=== PATIENT | female | born 1975 | race Two or more races ===

== ENCOUNTER 2023-08-07 07:29 | Inpatient (IN) | payer OTHER ==
[~2023-08-07] VITALS: Ht 175.3 cm; Wt 75.3 kg
[~2023-08-07 07:29] MED LIST: CYTOMEL5 MCG PO; FOLIC ACID1 MG PO; IRON325 MG PO; MAGNESIUM250 MG PO; MELATONIN10 M2 PO; PROBIOTIC1 EACH PO; SYNTHROID125 MCG PO
[2023-08-07] MEDS ORDERED: 0.9 % SODIUM CHLORIDE 1,000 ML IV SCH (09:30)
[2023-08-07] MEDS ORDERED: CEFTRIAXONE SODIUM 2,000 MG VIAL IV SCH (09:54)
[2023-08-07] MEDS ORDERED: FAMOTIDINE/PF 20 MG/2 ML VIAL IV SCH (09:54)
[2023-08-07] MEDS ORDERED: METRONIDAZOLE/SODIUM CHLORIDE 500 MG/100 ML PIGGYBACK IV SCH (09:55)
[2023-08-07] MEDS ORDERED: SOD FERRIC GLUC COMPLX/SUCROSE 62.5 MG/5 ML AMPUL IV SCH (10:00)
[2023-08-07] MEDS ORDERED: Cyanocobalamin/Mecobalamin 1 TAB.SL SL SCH (10:00)
[2023-08-07 11:28] LABS: INR 1.16; PARTIAL THROMBOPLASTIN TIME 33.4 SECONDS (22.0-34.0)
[2023-08-07 11:29] LABS: HEMATOCRIT 27.5 % (36.0-45.00); MEAN CELL VOLUME 76.9 fL (80.00-100.00); MEAN CORPUSCULAR HEMOGLOBIN 25.2 pg (27.00-32.0); MEAN CORPUSCULAR HGB CONC 32.8 g/dl (32.0-36.0); PLATELET COUNT 580 K/uL (150-450); RED BLOOD COUNT 3.58 M/uL (4.00-6.00); RED CELL DISTRIBUTION WIDTH 15.7 % (11.5-14.5)
[2023-08-07 11:36] LABS: ERYTHROCYTE SEDIMENTATION RATE > 130 mm/hr
[2023-08-07 11:44] LABS: PH,URINE 6.5 (5.0-8.0); URINE APPEARANCE Clear; URINE BILIRRUBIN Negative (NEGATIVE); URINE COLOR Yellow; URINE GLUCOSE Negative (NEGATIVE); URINE LEUKOCYTE Large; URINE NITRATE Negative; URINE PROTEIN Negative (NEGATIVE); URINE UROBILINOGEN 0.2 E.U./dl
[2023-08-07 11:49] LABS: URINE BACTERIA 1103.7 uL (0.0-1933); URINE EPITHELIAL CELLS 9.2 uL (0.0-38.8); URINE WBC 169.2 uL (0.0-23.2)
[2023-08-07 12:00] LABS: ALBUMIN 2.6 gm/dL (3.4-5.0); BILIRUBIN TOTAL 0.22 mg/dL (0.3-1.2); CALCIUM 9.2 mg/dL (8.5-10.1); CREATININE SERUM 0.81 mg/dL (0.55-1.02); GFR 75.79; GLOBULINA 6.3 G/DL (2.4-3.5); MAGNESIUM 2.3 mg/dL (1.8-2.4); PHOSPHOROUS 4.2 mg/dL (2.5-4.9); POTASSIUM 3.43 mEq/L (3.5-5.1); TOTAL PROTEIN 8.9 gm/dL (6.4-8.2)
[2023-08-07 12:03] LABS: URINE BLOOD TRACES
[2023-08-07 12:14] LABS: C-REACTIVE PROTEIN 8.75 MG/DL (0.00-0.29); TSH 0.21 uIU/mL (0.358-3.74)
[2023-08-07] MEDS ORDERED: POTASSIUM CHLORIDE 20MEQ/100ML H2O PB IV ONE (16:00)
[2023-08-08] MEDS ORDERED: LEVOTHYROXINE SODIUM 125 MCG TABLET PO SCH (06:00)
[2023-08-08 07:06] LABS: HEMATOCRIT 25.8 % (36.0-45.00); MEAN CELL VOLUME 77.3 fL (80.00-100.00); MEAN CORPUSCULAR HEMOGLOBIN 25.4 pg (27.00-32.0); MEAN CORPUSCULAR HGB CONC 32.9 g/dl (32.0-36.0); PLATELET COUNT 507 K/uL (150-450); RED BLOOD COUNT 3.34 M/uL (4.00-6.00); RED CELL DISTRIBUTION WIDTH 15.6 % (11.5-14.5)
[2023-08-08 07:07] LABS: HEMOGLOBIN 8.5 g/dL (12.0-15.00)
[2023-08-08 08:12] LABS: CALCIUM 8.8 mg/dL (8.5-10.1); CREATININE SERUM 0.68 mg/dL (0.55-1.02); GFR 92.74; MAGNESIUM 2.3 mg/dL (1.8-2.4); PHOSPHOROUS 4.7 mg/dL (2.5-4.9); POTASSIUM 4.37 mEq/L (3.5-5.1)
[2023-08-08] MEDS ORDERED: LEVOTHYROXINE SODIUM 100 MCG TABLET PO SCH (09:00)
[2023-08-08] MEDS ORDERED: FUROsemide 20 MG/2 ML VIAL IV SCH (11:15)
[2023-08-08 12:24] LABS: PLATELET ESTIMATE INCREASED (NORMAL)
[2023-08-08] MEDS ORDERED: POLYETHYLENE GLYCOL 3350 17 GM BLIST.PACK PO SCH (21:00)
[2023-08-09 18:19] LABS: HEMATOCRIT 33.4 % (36.0-45.00); HEMOGLOBIN 11.2 g/dL (12.0-15.00); MEAN CELL VOLUME 78.4 fL (80.00-100.00); MEAN CORPUSCULAR HEMOGLOBIN 26.3 pg (27.00-32.0); MEAN CORPUSCULAR HGB CONC 33.5 g/dl (32.0-36.0); PLATELET COUNT 567 K/uL (150-450); RED BLOOD COUNT 4.26 M/uL (4.00-6.00); RED CELL DISTRIBUTION WIDTH 16.2 % (11.5-14.5)
[2023-08-11] MEDS ORDERED: LACTOBACILLUS ACIDOPHILUS 1 CAP CAP PO SCH ×2 (11:21→17:00)
[2023-08-11 17:46] LABS: PH,URINE 6.5 (5.0-8.0); URINE APPEARANCE Clear; URINE BILIRRUBIN Negative (NEGATIVE); URINE BLOOD NHT; URINE COLOR Yellow; URINE GLUCOSE Negative (NEGATIVE); URINE LEUKOCYTE Moderate; URINE NITRATE Negative; URINE PROTEIN Negative (NEGATIVE); URINE UROBILINOGEN 0.2 E.U./dl
[2023-08-11 17:47] LABS: URINE BACTERIA 104.5 uL (0.0-1933); URINE EPITHELIAL CELLS 29.9 uL (0.0-38.8); URINE RBC 21.2 uL (0.0-20.8); URINE WBC 110.2 uL (0.0-23.2)
[2023-08-12 06:34] LABS: HEMATOCRIT 32.5 % (36.0-45.00); HEMOGLOBIN 10.7 g/dL (12.0-15.00); MEAN CELL VOLUME 78.9 fL (80.00-100.00); MEAN CORPUSCULAR HGB CONC 32.9 g/dl (32.0-36.0); PLATELET COUNT 493 K/uL (150-450); RED BLOOD COUNT 4.12 M/uL (4.00-6.00); RED CELL DISTRIBUTION WIDTH 16.4 % (11.5-14.5)
[2023-08-12 06:52] LABS: ERYTHROCYTE SEDIMENTATION RATE 128 mm/hr
[2023-08-12 06:56] LABS: CALCIUM 9.1 mg/dL (8.5-10.1); CREATININE SERUM 0.71 mg/dL (0.55-1.02); GFR 88.24; MAGNESIUM 2.1 mg/dL (1.8-2.4); PHOSPHOROUS 4.8 mg/dL (2.5-4.9); POTASSIUM 3.52 mEq/L (3.5-5.1)
[2023-08-12 07:00] LABS: C-REACTIVE PROTEIN 1.89 MG/DL (0.00-0.29)
[2023-08-12 07:08] LABS: T4 TOTAL 11.35 UG/DL (4.8-13.9); TSH 0.666 uIU/mL (0.358-3.74)
[2023-08-12] MEDS ORDERED: ENOXAPARIN SODIUM 40 MG/0.4 ML SYRINGE SUBCUTANEO SCH (09:00)
[2023-08-13] MEDS ORDERED: FAMOTIDINE/PF 20 MG/10 ML SYRINGE IV SCH (09:00)
[2023-08-13] MEDS ORDERED: POVIDONE-IODINE 118 ML BOTT TOP ONE (12:41)
[2023-08-13] MEDS ORDERED: IOVERSOL 320 MG/ML - 50 ML VIAL IV ONE (12:56)
[2023-08-13] MEDS ORDERED: METRONIDAZOLE/SODIUM CHLORIDE 500 MG/100 ML PIGGYBACK IV ONE (18:38)
[2023-08-13] MEDS ORDERED: KETOROLAC TROMETHAMINE 30 MG VIAL IV STA (22:09)
[2023-08-14 05:22] LABS: MEAN CELL VOLUME 79.5 fL (80.00-100.00); MEAN CORPUSCULAR HGB CONC 33.1 g/dl (32.0-36.0); PLATELET COUNT 395 K/uL (150-450); RED CELL DISTRIBUTION WIDTH 17.2 % (11.5-14.5)
[2023-08-14 05:33] LABS: HEMOGLOBIN 10.3 g/dL (12.0-15.00); MEAN CORPUSCULAR HEMOGLOBIN 26.4 pg (27.00-32.0)
[2023-08-14 06:00] LABS: CALCIUM 8.4 mg/dL (8.5-10.1); CREATININE SERUM 0.65 mg/dL (0.55-1.02); GFR 97.7; MAGNESIUM 1.8 mg/dL (1.8-2.4); PHOSPHOROUS 4.2 mg/dL (2.5-4.9); POTASSIUM 3.19 mEq/L (3.5-5.1)
[2023-08-14] MEDS ORDERED: SODIUM CHLORIDE 0.45 % 1,000 ML IV SCH (09:00)
[2023-08-14] MEDS ORDERED: FAMOTIDINE/PF 20 MG/2 ML VIAL IV SCH (09:00)
[2023-08-14] MEDS ORDERED: POTASSIUM CHLORIDE 20MEQ/100ML H2O PB IV ONE (09:00)
[2023-08-14] MEDS ORDERED: IOVERSOL 320 MG/ML - 50 ML VIAL IV ONE ×2 (19:35→20:15)
[2023-08-14] MEDS ORDERED: LIDOCAINE HCL 1%/Epi 20ML VIAL IJ ONE ×2 (19:35→20:15)
[2023-08-14] MEDS ORDERED: VANCOMYCIN HCL 1,000 MG VIAL IV ONE (21:00)
[2023-08-15] MEDS ORDERED: SYNTHROID125 MCG PO (16:57)
[2023-08-15] MEDS ORDERED: INTESTINEX680 M1 PO (16:57)
[2023-08-15] MEDS ORDERED: FUSION PLUS CA1 EACH PO (16:57)
[2023-08-15] MEDS ORDERED: VITAMIN B-650 M1 PO (16:57)
[2023-08-15] MEDS ORDERED: FOLIC ACID1 MG PO (16:57)
[2023-08-15] MEDS ORDERED: ABANEU-SL TABL1 EACH SL (16:57)
== END 2023-08-15 17:55 | disposition home or self-care (01) | DRG 749 ==
LOC: ER 07:29 → SEC-K 11:12 → SURG 11:12
PROVIDERS: Emergency Medicine; Internal Medicine Infectious Disease; Radiology Vascular & Interventional Radiology; ADMIT Internal Medicine Geriatric Medicine; ATTEND Internal Medicine Geriatric Medicine
PROC: BW21YZZ Computerized Tomography (CT Scan) of Abdomen and Pelvis using Other Contrast (ICD-10-PCS; 2023-08-07)
PROC: 30233N1 Transfusion of Nonautologous Red Blood Cells into Peripheral Vein, Percutaneous Approach (ICD-10-PCS; 2023-08-09)
PROC: 0TJB8ZZ Inspection of Bladder, Via Natural or Artificial Opening Endoscopic (ICD-10-PCS; 2023-08-13)
PROC: 0T7B3DZ Dilation of Bladder with Intraluminal Device, Percutaneous Approach (ICD-10-PCS; principal; 2023-08-14 20:15)
DX: N80.30 Endometriosis of pelvic peritoneum, unspecified (principal); N13.30 Unspecified hydronephrosis; N39.0 Urinary tract infection, site not specified; N13.4 Hydroureter; N70.93 Salpingitis and oophoritis, unspecified; D64.9 Anemia, unspecified; E03.9 Hypothyroidism, unspecified